=== PATIENT | male | born 2000 ===

== ENCOUNTER 2024-08-14 14:43 | Emergency (ER) | payer SELFPAY ==
[2024-08-14] MEDS: Ketorolac 30 MG/ML SDV IM ONE (18:32)
[2024-08-14] MEDS: Orphenadrine 60 MG/2 ML Inj IM ONE (18:33)
== END 2024-08-14 18:45 | disposition home or self-care (01) ==
LOC: DL.ED 14:43
DX: M43.17 Spondylolisthesis, lumbosacral region (principal); I10 Essential (primary) hypertension; F17.210 Nicotine dependence, cigarettes, uncomplicated
CPT/HCPCS: 72100; 96372; 99283; J1885; J2360